=== PATIENT | female | born 1960 | race Caucasian/White ===

== ENCOUNTER 2020-02-25 21:22 | Inpatient (IN) | payer MEDICAID ==
[~2020-02-25] VITALS: Ht 157.4 cm; Wt 67.6 kg
[2020-02-25] MEDS ORDERED: TYLENOL325 M3 PO (21:26)
[2020-02-25] MEDS ORDERED: LIPITOR20 MG PO (21:27)
[2020-02-25] MEDS ORDERED: BISACODYL10 MG R (21:28)
[2020-02-25] MEDS ORDERED: BUPROPION ER100 M1 PO (21:29)
[2020-02-25] MEDS ORDERED: 'KLONOPIN0.5 MG PO (21:30)
[2020-02-25] MEDS ORDERED: KLONOPIN0.5 MG PO (21:31)
[2020-02-25] MEDS ORDERED: LAMICTAL200 MG PO (21:32)
[2020-02-25] MEDS ORDERED: FLEET ENEMA EX230 M1 R (21:32)
[2020-02-25] MEDS ORDERED: MIDODRINE HCL5 M1 PO (21:33)
[2020-02-25] MEDS ORDERED: MOM30 M1 PO (21:33)
[2020-02-25] MEDS ORDERED: NAMENDA-14 PO (21:34)
[2020-02-25] MEDS ORDERED: OXYBUTYNIN5 MG PO (21:36)
[2020-02-25] MEDS ORDERED: SEROQUEL50 MG PO (21:37)
[2020-02-25] MEDS ORDERED: VITAMIN D250 MCG PO (21:39)
[2020-02-25 23:40] VITALS: BP 119/63
--- NOTE | 2020-02-25 23:40 | NUR ---
JAVIER SARKAR a 59 year old F admitted via stretcher from the ADMITTING as a emergency 72 hr. hold admission. Arrived on unit at 2340PM. ALLERGIES: NONE. Vital signs are: [id number]/63. CLIENT IS PINK SLIPPED. WILL CALL GUARDIAN TO HAVE HER FAX PAPERWORK THEN SIGN the following forms with stated understanding: Authorization For The Release of Medical Information, Clothing List, Consent to Voluntary Admission and Hospitalization, Consent and Release Forms/Receipt of Rights, Acknowledgement of Advance Directive Information, Behavioral Health Consent Form, and Informed Consent of Medications. Admitted under the services of Dr. [facility]. A search was conducted and hazardous articles were removed. Client was oriented to the unit. LAURIE FLOREZ
--- NOTE | 2020-02-26 00:30 | NUR ---
DR VICENTE NOTIFIED OF ADMISSION.
--- NOTE | 2020-02-26 01:06 | NUR ---
CLIENT ARRIVED VIA AMBULANCE. MOVED TO HER BED. ALL COSTUME JEWELERY REMOVED. HAIR MATTED WITH DRY FLAKEY SKIN NOTED. GREEN AROUND ENTIRE NECK AND ALL FINGERS THAT HAD JEWELERY ON THEM. CLIENT TAKEN AND GIVEN A FULL SHOWER AND HAIR WASHING. LOWER DENTURES APPEAR TO BE TO LARGE THEY MOVE AROUND MOUTH WHEN SHE TALKS. UPPERS FIT. REFUSED TO HAVE DENTURES SOAK FOR NIGHT. CLIENT DENIES BEING AGGRESSIVE OR PUSHING ANYONE. STATES SHE IS A GOOD PERSON, AND LOVES PEOPLE. WILL CONTINUE TO MONITOR FOR CHANGES IN MOOD/BEHAVIOR AND Q 15 MINUTES AND PRN FOR SAFETY
[2020-02-26 01:12] VITALS: BP 119/63
--- NOTE | 2020-02-26 03:39 | NUR ---
24 HR chart check completed.
--- NOTE | 2020-02-26 06:20 | NUR ---
SLEPT POORLY. PREOCCUPIED WITH GETTING JEWELRY BACK. INTERMITTENT TEARS. WILL CONTINUE TO MONITOR
[2020-02-26 06:26] LABS: BASO % 0.2 % (0.0-1.0); EOS # 0.1 10*3/uL (0.0-0.4); EOS % 1.6 % (1.0-4.0); HEMATOCRIT 41.7 % (37.0-47.0); LYMPH # 2.1 10*3/uL (1.3-4.4); MEAN CELL VOLUME 89.9 fl (81.0-99.0); MEAN CORPUSCULAR HGB 28.9 pg (27.0-31.0); MEAN CORPUSCULAR HGB CONC 32.1 g/dl (33.0-37.0); MONO # 0.6 10*3/uL (0.1-1.0); MONO % 8.6 % (3.0-9.0); NEUT # 3.7 10*3/uL (2.3-7.9); NEUT % 57.4 % (47.0-73.0); PLATELET COUNT AUTOMATED 276 10*3/uL (130-400); RED BLOOD COUNT 4.64 10*6/uL (4.10-5.10); RED CELL DISTRI WIDTH 13.6 % (0-14.5); WHITE BLOOD COUNT 6.4 10*3/uL (4.8-10.8)
[2020-02-26 06:48] LABS: ALBUMIN 3.5 gm/dl (3.1-4.5); ALKALINE PHOSPHATASE 127 U/L (45-117); BUN 13 mg/dl (7-24); CHLORIDE 108 mmol/L (98-107); POTASSIUM 3.6 mmol/L (3.5-5.1); SGOT/AST 14 IU/L (3-35); SGPT/ALT 24 U/L (12-78); SODIUM 140 mmol/L (136-145); TOTAL PROTEIN 7.4 gm/dL (6.4-8.2)
[2020-02-26 07:56] LABS: VITAMIN D, 25-HYDROXY 62.7 ng/mL (30-100)
--- NOTE | 2020-02-26 09:00 | NUR ---
Treatment Plan meeting was held this a.m. with Dr. Shukla, SCOTT Claudio, RN, AT, VICE PRESIDENT INDUSTRIAL RELATIONS-S and Medical Administrative in attendance. Plan for discharge Next Week. Pt. came to [facility] from [facility]. Will reach out to facility today to discuss discharge Planning.
--- NOTE | 2020-02-26 11:42 | NUR ---
DR. BATES ON UNIT TO ASSESS PATIENT.
--- NOTE | 2020-02-26 12:21 | NUR ---
Met with pt to complete psychosocial assessment. It was difficult to obtain much information from the pt as pt was fixated on getting a headband for her hair. Pt was also actively hallucinating. Pt stated that her boyfriend Darryl was in the room and pointed toward a corner where Darryl was standing. After meeting with pt, this ad writer left a voicemail message for pt's guardian Carole Eagle requesting a return call to obtain additional pt information.
--- NOTE | 2020-02-26 12:41 | NUR ---
Spoke with Thao at [facility]. Pt. is Long-Term Care Resident and will return to facility at discharge. Provided with updates and Discharge Plan for next week. Clinical Updates faxed to facility [phone].
--- NOTE | 2020-02-26 13:25 | NUR ---
Occupational Therapy referral received and screen completed. Patient was at [facility] when she became physically aggressive toward staff and was taken to [facility]. From [facility] she was transferred to [facility] Unit with Schizoaffective disorder. She was observerved ambulating on the unit with no device and at an independent level. Nursing reports that patient is independent in all ADLs with min assist for shower. At this time staff has no concerns and patient does not appear to need an OT evaluation. Discharge OT referral. Thank you. Alba Acuna OTR/L
--- NOTE | 2020-02-26 13:48 | NUR ---
PHYSICAL THERAPY Physical therapy referral received and screen completed. Patient ambulating throughout BHU without assistive device. Patient presents with no skilled PT needs at this time. Discharge PT orders. Thank you. Janna Peña,PT,DPT
--- NOTE | 2020-02-26 15:37 | NUR ---
PM GROUP PT DID NOT ATTEND AFTERNOON GROUP THERAPY. PT WAS AT THE END OF THE BARAJAS LOOKING OUT THE WINDOW. PT CHOSE TO STAY IN HER ROOM FOR THE REMAINDER OF GROUP TIME
--- NOTE | 2020-02-26 18:38 | NUR ---
Shift chart check completed.
[2020-02-26 20:00] VITALS: BP 130/73
--- NOTE | 2020-02-26 21:51 | NUR ---
24 HR chart check completed.
--- NOTE | 2020-02-26 22:04 | NUR ---
P-PREOCCUPIED WITH HER MEDICATIONS AND THE TIME FRAME. HOARDING ITEMS IN HER HANDS. I-REDIRECTED, AND REORIENTED. PROVIDED ACTIVE LISTENING. R-ACCEPTED REDIRECTION AND REORIENTATION. REFUSED TO GIVE UP PAPERS IN HER HANDS. MEDICATION COMPLIANT. P-WILL CONTINUE TO REDIRECT AND REORIENT. WILL MONITOR FOR HALLUCINATIONS, MOODS AND BEHAVIORS.
--- NOTE | 2020-02-27 05:08 | NUR ---
PT SLEPT 4 HOURS WITH INTERMITTENT AWAKENINGS SITTING ON SIDE OF BED.
[2020-02-27 07:07] LABS: CHOLESTEROL 176 mg/dL (<200); HDL CHOLESTEROL 94 mg/dl (40-60); LDL CHOLESTEROL 69 mg/dL (9-159); TRIGLYCERIDES 66 mg/dl (<150); VLDL CHOLESTEROL 13 mg/dL (6-40)
[2020-02-27 07:56] VITALS: BP 125/88
--- NOTE | 2020-02-27 08:30 | NUR ---
Treatment Plan meeting was held this a.m. with Dr. Shukla via telephone, ELECTRONIC FIELD SERVICE ENGINEER Shanon, RN, AT, GANTRY RIGGER-S and Raise Drill Operator in attendance. Plan for discharge Next Week. 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
--- NOTE | 2020-02-27 08:33 | NUR ---
DR PARRA ON UNIT TO ASSESS PATIENT, UPDATE PROVIDED.
--- NOTE | 2020-02-27 11:28 | NUR ---
DR. SEE NOTIFIED OF CONSULT FOR NAIL CARE
--- NOTE | 2020-02-27 11:48 | NUR ---
AM GROUP PT ATTENDED MORNING GROUP THERAPY AND PARTICIPATED BY BEADING 2 BRACELETS AND PAINTING WITH WATERCOLORS. IT WAS OKAY WITH NURSE THAT PT KEEP THE BRACELETS TO WEAR. PT WAS QUIET AND FOCUSED BUT NEEDED CONSTANT REASSURANCE. PT WAS HOLDING A BUNCH OF TRASH THAT SHE HAD PICKED UP FROM THE FLOOR AND WAS RELUCTANT TO PUT IT DOWN EVEN TO BEAD. PT EXPRESSED NO HALLUCINATIONS WHILE IN GROUP.
[2020-02-27 14:14] LABS: BILIRUBIN Negative; CLARITY Clear (Clear); COLOR Yellow (Yellow); GLUCOSE Negative; KETONE Trace
[2020-02-27 14:15] LABS: BLOOD Negative (Negative); LEUKO ESTERASE Trace (Negative); NITRITE Negative (Negative); PH 6.5 (4.5-8.0); SPECIFIC GRAVITY < 1.005 (1.001-1.030); UROBILINOGEN 0.2 E.U./dl (0.0-1.0)
[2020-02-27 14:20] LABS: EPITHELIAL CELLS 0-2
--- NOTE | 2020-02-27 15:16 | NUR ---
DR SEE, PODIATRY, ON UNIT TO CLIP PATIENTS TOENAILS.
--- NOTE | 2020-02-27 15:20 | NUR ---
Pt was very proud of the bracelets that she made in AM group. Pt was sitting in a quiet room with music playing after lunch. Pt was pleasant and did not voice any hallucinations during interaction with this adjusto writer operator.
--- NOTE | 2020-02-27 15:42 | NUR ---
PM GROUP PT ATTENDED AFTERNOON GROUP THERAPY FOR A SHORT TIME AND WORKED ON A CRAFT. PT LEFT THE ROOM AND DID NOT RETURN.
--- NOTE | 2020-02-27 15:42 | NUR ---
Shift chart check completed.
[2020-02-27 19:42] VITALS: BP 119/84
--- NOTE | 2020-02-27 21:23 | NUR ---
24 HR chart check completed.
--- NOTE | 2020-02-27 23:08 | NUR ---
P-MANIC I-ASSESS PTS BEHAVIORS, ADMINISTER MEDS, MONITOR SLEEP R-ELATED MOOD. VERY JOVIAL. INAPPROPRIATE LAUGHTER. LISTENING TO MUSIC & DANCING FOR APPROX 1 HOUR. NOTED TO HAVE EYE DARTING & TURN HEAD TO THE SIDE & WHISPER. CONTINUES TO LENORE ITEMS. COMPLIANT WITH MEDICATIONS. DISHELVED APPEARANCE. P-CONTINUE TO MONITOR
--- NOTE | 2020-02-28 05:38 | NUR ---
PT HAS REMAINED AWAKE THE ENTIRE SHIFT STAYING QUIETLY IN HER ROOM. RESTLESS, UP & DOWN IN BED & BACK & FORTH TO THE BATHROOM
[2020-02-28 07:44] VITALS: BP 137/81
--- NOTE | 2020-02-28 08:30 | NUR ---
Treatment Plan meeting was held this a.m. with SCOTT Claudio, RN, AT, ANTONIO-S and High Lead Yarder in attendance. Plan for discharge Next Week. 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
--- NOTE | 2020-02-28 08:56 | NUR ---
MELISSA PARRA ON UNIT TO ASSESS PATIENT, UPDATE PROVIDED.
--- NOTE | 2020-02-28 11:41 | NUR ---
AM GROUP PT DID NOT ATTEND MORNING GROUP THERAPY. PT WAS IN HER ROOM RESTING.
--- NOTE | 2020-02-28 13:49 | NUR ---
Clinical Updates faxed to [facility].
--- NOTE | 2020-02-28 14:47 | NUR ---
This afternoon this FEATHER MAKER-S observed pt alone in the neves facing toward the wall. Pt was motioning with her hands as if she wanted someone to come toward her. Pt was also speaking toward the wall to the unseen. Pt was unaware that this signwriter was present.
--- NOTE | 2020-02-28 15:39 | NUR ---
PM GROUP PT ATTENDED THE LATTER HALF OF AFTERNOON GROUP THERAPY AND PARTICIPATED BY COLORING. PT WAS FOCUSED AND QUIET. PT EXHIBITED NO ADVERSE BEHAVIORS WHILE IN GROUP.
--- NOTE | 2020-02-28 18:10 | NUR ---
P- CONFUSED, HOARDING ITEMS, AUDITORY/VISUAL HALLUCINATIONS I- ORIENTATION, MOOD AND BEHAVIORS ASSESSED. ASSESSED PT FOR SI/HI, INTENT OR PLAN. ASSESSED PT FOR S/S HALLUCINATIONS, PARANOIA AND/OR DELUSIONS. MEDICATIONS ADMINISTERED PER PHYSICIAN'S ORDERS. ASSISTANCE WITH ADL CARE PROVIDED. ENCOURAGED PT TO ATTEND AND PARTICIPATE IN HORVATH MILIEU GROUPS AND ACTIVITES. R- PT IS ALERT AND ORIENTED TO SELF ONLY, OTHERWISE CONFUSED. ST/LT MEMORY GAPS NOTED. RESPS EASY AND EVEN ON ROOM AIR. MOOD STABLE, AFFECT INAPPROPRIATE AT TIMES. SPEECH IS RAPID, SLURRED, DIFFICULT TO UNDERSTAND AT TIMES, HOWEVER, PT IS ABLE TO MAKE NEEDS KNOWN. PT DENIES SI/HI, INTENT OR PLAN. PT DENIES HALLUCINATIONS, HOWEVER, PT WAS OBSERVED BY STAFF WITH RESPONSE TO INTERNAL AUDITORY/VISUAL STIMULI, GESTURING AND TALKING TO UNSEEN OTHERS. PT APPEARED SLIGHTLY PARANOID/SUSPICIOUS THIS AM, PEEKING OUT OF HER ROOM WHILE HIDING BEHIND THE DOORWAY. PT IS MEDICATION COMPLIANT WITHOUT DIFFICULTY. NO AGGRESSIVE BEHAVIORS, NO EXIT SEEKING. NO DISTRESS NOTED. P- PLAN TO CONTINUE CURRENT TREATMENT, CONTINUE TO MONITOR MOOD AND BEHAVIORS, PROVIDE APPROPRIATE REORIENTATION AND REDIRECTION NEEDED. CONTINUE TO ENCOURAGE MEDICATION COMPLIANCE WELL GROUP ATTENDANCE AND PARTICIPATION.
[2020-02-28 19:40] VITALS: BP 127/78
--- NOTE | 2020-02-28 21:00 | NUR ---
UP IN DININGROOM. PRESSURED SPEECH AND ANXIOUS. KEEPS REPEATING I WANT MY MEDS, ARE THOSE MINE, I WANT MY MEDICINE. CLIENT FOLLOWED ME UP BARAJAS AND WAITED OUTSIDE PEER ROOM. TOOK MEDICATIONS AND WENT TO BED. WILL CONTINUE TO MONITOR Q 15 MINS AND PRN FOR SAFETY
--- NOTE | 2020-02-29 00:22 | NUR ---
24 HR chart check completed.
--- NOTE | 2020-02-29 05:43 | NUR ---
RESTLESS. SLEPT APPROX 5.5 HOURS.
--- NOTE | 2020-02-29 07:39 | NUR ---
Patient resting quietly with no c/o discomfort. Respirations easy and regular. Vital signs stable. No overt distress. ARA LIMA
[2020-02-29 07:51] VITALS: BP 144/85
--- NOTE | 2020-02-29 09:00 | NUR ---
Treatment Plan meeting was held this a.m. with Dr. Shukla, RN, AT, SUPERVISOR/PORT DIRECTOR-S and Tobacco Sweeper in attendance. Plan for discharge Next Week. Pt. will return to [facility].
--- NOTE | 2020-02-29 11:49 | NUR ---
AM GROUP PT ATTENDED MORNING GROUP THERAPY AND PARTICIPATED BY WORKING ON A CRAFT. PT EXHIBITED OBSESSIVE BEHAVIORS IN WANTING TO HAVE HER UNFINISHED BOX TO TAKE WITH HER. PT WAS ASSURED THAT THE BOX WAS HERS TO TAKE WITH HER WHEN SHE WENT HOME BUT COULD NOT BE TAKEN TO HER ROOM OR OUT OF THE DAYROOM. PT CONTINUED TO OBSESS OVER HAVING THE BOX IN HER POSSESSION. PT WAS DISTRACTED WHEN TOLD SHE GET TO KEEP THE PROJECT IF SHE DIDN'T LEAVE IT WHERE IT WAS. PT WAS OBSERVED TO BE CLUTCHING A BUNCH OF TRASH IN HER HAND AND I NOTICED A FEW COTTON BALLS AND BANDAGES WITH BLOOD ON THEM. PT WAS ASKED WHERE SHE GOT THEM AND IF SHE PICKED THEM OFF THE FLOOR OR OUT OF THE TRASH? PT KEPT SAYING OVER AND OVER, "THEY'RE MINE, THEY'RE MINE." AND CLUTCHED HER FIST CLOSED. MHW WAS PRESENT AND WAS MADE AWARE OF THE SITUATION.
--- NOTE | 2020-02-29 11:56 | NUR ---
SPOKE WITH DR JARRELL RE: FINDING PT WITH MULTIPLE EXELON PATCHES IN HER HAND AND BELONGINGS. ADVISED THAT WHEN 2ND NURSE WENT TO CHANGE THE PATCH THIS AM, SHE WAS UNABLE TO LOCATE YESTERDAY'S PATCH. NEW ORDERS RECEIVED FOR ORAL MEDICATION.
--- NOTE | 2020-02-29 14:26 | NUR ---
P- HOARDING BEHAVIORS. IRRITABLE WITH REDIRECTION. I- ORIENTATION, MOOD AND BEHAVIORS ASSESSED. ASSESSED PT FOR SI/HI, INTENT OR PLAN. ASSESSED PT FOR S/S HALLUCINATIONS, PARANOIA AND/OR DELUSIONS. MEDICATIONS ADMINISTERED PER PHYSICIAN'S ORDERS. ENCOURAGED PT TO ATTEND AND PARTICIAPATE IN HORVATH MILIEU GROUPS AND ACTIVITIES. R- PT IS ALERT AND ORIENTED TO PERSON AND PLACE, OTHERWISE CONFUSED. PT STATES THE YEAR IS "[id number]". PT WAS ABLE TO CORRECTLY IDENTIFY THE PRESIDENT. MEMORY GAPS NOTED. RESPS EASY AND EVEN ON ROOM AIR. MOOD EASILY IRRITABLE UPON ATTEMPTS TO REDIRECT, ESPECIALLY IN REGARD TO PT'S HOARDING BEHAVIORS. PT WAS NOTED WITH MULTIPLE TRASH-LIKE ITEMS IN HER HANDS. PT REFUSED TO GIVE THESE ITEMS TO STAFF YELLING "MINE! MINE! MINE!". STAFF WAS EVENTUALLY ABLE TO SECURE THESE ITEMS FROM THE PT. PT WAS FOUND WITH COTTON BALLS COVERED IN NAIL PERSIAN, TAPE, MULTIPLE STRAWS, CHENG AND TOOTHBRUSES WELL 4 EXELON PATCHES STUCK TO IN THE INSIDE OF HER PALM. EXPLAINED TO PT WHY SHE COULD NOT BE HOARDING THESE ITEMS, ESPECIALLY THE EXELON PATCHES. PT DOES NOT ACCEPT REDIRECTION EASILY. PT INSISTS THE PATCHES ARE "GEMSTONES" AND THAT WE "STOLE THEM" FROM HER. EDUCATION AND REDIRECTION PROVIDED WITH LITTLE EFFECT. PT EVENTUALLY CALMED WHILE LISTENING TO MUSIC AND THEN BEGAN DANCING AND SINGING. PT DENIES SI/HI, INTENT OR PLAN. PT DENIES HALLUCINATIONS, NO RESPONSE TO INTERNAL STIMULI NOTED. NO PHYSICALLY AGGRESSIVE BEHAVIORS. NO DISTRESS NOTED. P- PLAN TO CONTINUE CURRENT TREATMENT, CONTINUE TO MONITOR MOOD AND BEHAVIORS. PROVIDE APPROPRIATE REORIENTATION, REDIRECTION AND 1:1 NEEDED. CONTINUE TO ENCOURAGE MEDICATION COMPLIANCE WELL GROUP ATTENDANCE AND PARTICIPATION.
--- NOTE | 2020-02-29 15:40 | NUR ---
PM GROUP PT ATTENDED AFTERNOON GROUP THERAPY AND PARTICIPATED BY WORKING ON HER PROJECT AND LISTENING TO MUSIC. PT WAS FOCUSED AND ON TASK. PT WAS A BIT AGITATED THAT THE BRACELETS SHE HAD MADE WERE TAKEN OFF OF HER WHEN SHE WAS ALLOWED TO WEAR THEM FOR THE PAST 2 DAYS. PT WAS ASSURED THAT THEY WERE SAFE AND THAT SHE COULD HAVE THEM WHEN SHE LEAVES
[2020-02-29 19:54] VITALS: BP 113/86
--- NOTE | 2020-02-29 20:47 | NUR ---
INTRUSIVE AND DISRUPTIVE WITH STAFF WHEN WITH PEERS. WORDS SLURRED WITH FEW COHERANT. TALKING ABOUT LOVE AND PRAYING TO [place]. PREOCCUPIED WITH MEDICATION PASS. DIFFICULT TO REDIRECT. WILL CONTINUE TO MONITOR FOR CHANGES IN MOOD/BEHAVIOR AND Q 15 MINS AND PRN FOR SAFETY Q 15MINS AND PRN
--- NOTE | 2020-03-01 05:53 | NUR ---
HAD BROKEN SLEEP PAST 2230PM. SLEPT APPROX 5.5 HOURS BROKEN
[2020-03-01 07:44] VITALS: BP 110/67
--- NOTE | 2020-03-01 09:30 | NUR ---
ON UNIT TO SEE PT AT THIS TIME.
--- NOTE | 2020-03-01 11:20 | NUR ---
Treatment Plan meeting was held this a.m. with Dr. Shukla via telephone, SWINE GENETICS RESEARCHER Shanon, RN, AT, LIVING ADVISOR-S and Driller And Reamer in attendance. Plan for discharge Next Week. 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
--- NOTE | 2020-03-01 15:19 | NUR ---
P- HOARDING BEHAVIORS, WITHDRAWN. I- ORIENTATION, MOOD AND BEHAVIORS ASSESSED. ASSESSED PT FOR SI/HI, INTENT OR PLAN. ASSESSED PT FOR S/S HALLUCINATIONS, PARANOIA AND/OR DELUSIONS. MEDICATIONS ADMINISTERED PER PHYSICIAN'S ORDERS. ASSISTANCE WITH ADL CARE PROVIDED NEEDED. ENCOURAGED PT TO ATTEND AND PARTICIPATE IN HORVATH MILIEU GROUPS AND ACTIVITIES. R- PT IS ALERT AND ORIENTED TO PERSON, PLACE AND YEAR. CONFUSION AND MEMORY GAPS NOTED. RESPS EASY AND EVEN ON ROOM AIR. MOOD ELATED AND AFFECT ANIMATED AT TIMES. SPEECH IS RAPID, SLURRED, ABLE TO MAKE NEEDS KNOWN AND ANSWER QUESTIONS. PT DENIES SI/HI, INTENT OR PLAN. PT DENIES HALLUCINATIONS, NO RESPONSE TO INTERNAL STIMULI NOTED. NO PARANOIA OR DELUSIONS NOTED. PT IS ISOLATIVE/WITHDRAWN. HOARDING BEHAVIORS CONTINUE. PT IS MEDICATION COMPLIANT WITHOUT DIFFICULTY. NO DISTRESS NOTED. P- PLAN TO CONTINUE CURRENT TREATMENT, CONTINUE TO MONITOR MOOD AND BEHAVIORS. PROVIDE APPROPRIATE REORIENTATION AND REDIRECTION NEEDED. CONTINUE TO ENCOURAGE MEDICATION COMPLIANCE WELL GROUP ATTENDANCE AND PARTICIPATION.
[2020-03-01 20:00] VITALS: BP 123/61
--- NOTE | 2020-03-02 02:53 | NUR ---
P- INTRUSIVE/DISRUPTIVE. PT APPROACHED STAFF ON MULTIPLE OCCASIONS AT BEGINNING OF SHIFT DEMANDING HER MEDICATION STATING "YOU ARE LATE, IM SUPPOSED TO GET MY MEDICATIONS AT 8:30!". PT ALSO NOTED TO INTERRUPT STAFF WHILE ATTENDING TO OTHER PATIENTS BY YELLING OUT AND PUTTING HER HAND UP STATING "AM I SAFE!" OR BY ANSWERING QUESTIONS THAT ARE INTENDED FOR OTHER PEERS. I- PROVIDE 1:1 WITH THERAPEUTIC INTERVENTIONS. REDIRECT NEEDED. REITERATE SAFETY. ENCOURAGE MEDICATION COMPLIANCE AND EDUCATE. MONITOR SLEEP. R- "OH OKAY, SORRY". PT ALERT TO SELF, APPROX PLACE AND TIME. PT RECEPTIVE TO INTERVENTIONS WHEN PRESENTED FOR SHORT PERIODS, REDIRECTABLE NEEDED. PT OTHERWISE PLEASANT, CALM, INTERACTIVE. MEDICATION COMPLIANT WITHOUT DIFFICULTY. DENIES SI/HI, HALLUCINATIONS, OR PAIN. PT AMBULATORY WITH A STEADY GAIT, CONTINENT OF BOWEL AND BLADDER, INDEPENDENT IN ADL'S WITH PROMPTING. NO DISTRESS NOTED. P-CONTINUE TO MONITOR MOOD AND BEHAVIORS. MAINTAIN Q 15 MIN CHECKS AND PRN FOR SAFETY.
--- NOTE | 2020-03-02 05:45 | NUR ---
PATIENT OBSERVED ON Q 15 MIN CHECKS TO HAVE SLEPT APPROX 5 HOURS UNINTERRUPTED. NO DISTRESS NOTED.
--- NOTE | 2020-03-02 06:08 | NUR ---
24 HOUR CHART CHECK COMPLETED.
[2020-03-02 07:52] VITALS: BP 118/65
--- NOTE | 2020-03-02 09:10 | NUR ---
DR PARRA ON UNIT TO ASSESS PT, UPDATE PROVIDED.
--- NOTE | 2020-03-02 11:17 | NUR ---
NO ADVERSE MOODS OR BEHAVIORS NOTED AT THIS TIME. PT ALERT TO PERSON, PLACE AND TIME. PT MED COMPLIANT WITHOUT DIFFICULTY, UNABLE TO PROVIDE MED EDUCATION D/T COGNITION. PT CALM, PLEASANT AND COOPERATIVE WITH STAFF. NO HALLUCINATIONS OR DELUSIONS NOTED. PT DENIES ANY SUICIDAL THOUGHTS. PT AMBULATORY THROUGHOUT UNIT, GAIT STEADY. PT CONTINENT OF BOWEL AND BLADDER. PLAN IS TO MONITOR PT BEHAVIORS ON Q15 MIN SAFETY CHECKS, ENCOURAGE MED COMPLIANCE, ENCOURAGE GROUP PARTICIPATION AND SOCIALIZATION.
[2020-03-02 20:00] VITALS: BP 112/85
--- NOTE | 2020-03-03 01:57 | NUR ---
P-INTRUSIVE/DISRUPTIVE, YELLING OUT, PREOCCUPIED WITH HS MEDICATIONS. I-PROVIDE APPROPRIATE REDIRECTION. PROVIDE 1:1 WITH THERAPEUTIC INTERVENTIONS. ENCOURAGE MEDICATION COMPLIANCE AND EDUCATE. MONITOR SLEEP. R- "I WANT MY MEDICATIONS NOW, WHAT IS TAKING SO LONG, I WANT TO GO TO BED" PATIENT APPROACHED STAFF AT CHANGE OF SHIFT TO DEMAND HS MEDICATIONS. PT ALSO NOTED TO YELL OUT DOWN HALLWAY AND INTERRUPT STAFF WHILE ATTENDING TO OTHER PATIENTS IN REGARDS WANTING HER MEDICATIONS. PT MINIMALLY RECEPTIVE TO REDIRECTION AND AT TIMES BECOMES ARGUMENTATIVE TOWARD STAFF. NO AGGRESSIVE BEHAVIORS OBSERVED. MEDICATION COMPLIANT WITH OUT DIFFICULTY. DENIES SI/HI, HALLUCINATIONS, OR PAIN. AMBULATORY WITH A STEADY GAIT, INDEPENDENT WITH ADLS WITH PROMPTING, CONTINENT OF BOWEL AND BLADDER. NO DISTRESS NOTED. P-CONTINUE TO MONITOR MOOD AND BEHAVIORS. MAINTAIN Q 15 MIN CHECKS AND PRN FOR SAFETY.
--- NOTE | 2020-03-03 05:54 | NUR ---
PATIENT AWAKE AT THIS TIME AND BEING DISRUPTIVE OF UNIT. YELLING OUT IN REGARDS TO A "PURSE" AND A "SQUARE" WHILE POINTING HER FINGER AND CHARGING AT STAFF. PT ALSO ATTEMPTED TO PUSH STAFF MEMBERS IN HALLWAY WHILE CONTINUING TO STATE "GO, GO" AND "GO FIND IT NOW". MULTIPLE REDIRECTION ATTEMPTS REQUIRED. WILL CONTINUE TO MONITOR FOR ESCALATING BEHAVIORS.
--- NOTE | 2020-03-03 06:58 | NUR ---
PATIENT OBSERVED ON Q 15 MIN CHECKS TO HAVE SLEPT APPROX 2 HOURS INTERRUPTED. NO DISTRESS NOTED.
[2020-03-03 07:36] VITALS: BP 121/67
--- NOTE | 2020-03-03 09:05 | NUR ---
DR PARRA ON UNIT TO ASSESS PATIENT, UPDATE PROVIDED.
--- NOTE | 2020-03-03 17:23 | NUR ---
PATIENT IS ANXIOUS, CONFUSED, OBSESSIVE, PREOCCUPIED WITH MEDICATIONS. PATIENT IS RESTLESS, DEMANDING. PATIENT HAS MEMORY DEFICITS. PATIENT IS ALERT TO PERSON AND STATES SHE IS AT A "LAB WORK" PLACE. PATIENT IS ANIMATED. STATES SHE IS IN A "GOOD, CASTRO MOOD AND CHEERFUL". DENIES HALLUCINATIONS. DENIES SUICIDAL/HOMICIDAL IDEATION. PATIENT IS DISRUPTIVE. PATIENT IS AMBULATORY WITH STEADY GAIT. INDEPENDENT WITH ADL'S WITH MUCH ENCOURAGEMENT. MEDICATION COMPLIANT WITH EDUCATION. INTAKES ARE GOOD WITH ADEQUATE NUTRITION. Q15 MINUTE SAFETY CHECKS MAINTAINED. WILL CONTINUE TO MONITOR FOR MOOD/BEHAVIORS.
[2020-03-03 20:00] VITALS: BP 148/75
--- NOTE | 2020-03-03 20:56 | NUR ---
ELATED, ANIMATED, SMILING. RAPID SPEECH WITH SLURRED WORDS. STATES I AM IN SUCH A GREAT MOOD. DIFFICULTY SWOLLOWING PILLS. GIVEN APPLESAUCE TO HELP SWOLLOW. CONTINUE TO MONITOR FOR CHANGES IN MOOD/BEHAVIOR AND Q15 MINS AND PRN FOR SAFETY
--- NOTE | 2020-03-04 04:16 | NUR ---
24 HR chart check completed.
--- NOTE | 2020-03-04 06:07 | NUR ---
SLEPT [id number]. BROKEN HOUR BETWEEN [phone]
[2020-03-04 07:37] VITALS: BP 112/64
--- NOTE | 2020-03-04 09:00 | NUR ---
Treatment Plan meeting was held this a.m. with Dr. Shukla, SCOTT Claudio, RN, IRON AND STEEL WORK SUPERVISOR-S and Interpreter For The Deaf in attendance. Plan for discharge Wednesday. Pt. will return to [facility].
--- NOTE | 2020-03-04 11:40 | NUR ---
DR. POWER ON UNIT TO ASSESS PATIENT.
--- NOTE | 2020-03-04 11:53 | NUR ---
Clinical Updates faxed to [facility].
--- NOTE | 2020-03-04 15:36 | NUR ---
Shift chart check completed.
[2020-03-04 19:37] VITALS: BP 114/66
--- NOTE | 2020-03-04 20:52 | NUR ---
P--ANXIETY, CONFUSION, LABILE I--REVIEWED MEDICATIONS. ANSWERED QUESTIONS. OFFERED EMOTIONAL SUPPORT. R--WERE IS MY MEDICINE, RAPID SLURRED SPEECH, LABILE MOOD, WANTING PEERS MEDICATIONS P-MONITOR FOR CHANGES IN MOOD/BEHAVIOR AND Q 15 MINS AND PRN FOR SAFETY
--- NOTE | 2020-03-05 06:00 | NUR ---
UP AND AGGITATED THINKING ROOMMATE STOLE HER CLOTHING. REDIRECTION WAS DIFFICULT BUT COMPLETED. BROKEN SLEEP FROM [phone] AND [phone]
[2020-03-05 08:00] VITALS: BP 122/74
--- NOTE | 2020-03-05 08:30 | NUR ---
Treatment Plan meeting was held this a.m. with Dr. Shukla via telephone, IT ASSOCIATE Shanon, RN, AT, MODELING TEACHER-S and Puff Iron Operator in attendance. Plan for discharge at the end of the week. 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
--- NOTE | 2020-03-05 11:00 | NUR ---
DR POWER ON UNIT TO ASSESS PATIENT, UPDATE PROVIDED.
--- NOTE | 2020-03-05 15:24 | NUR ---
P: PREOCCUPIED WITH OTHERS BELONGING AND OF HER MEDICATIONS. ACCUSTORY OF STAFF TAKING HER BELONGS OF A WATER BOTTLE. PATIENT ATTEMPTED TO TAKE MARKERS FROM GROUP ACTIVITIES. I: ONE ON ONE AND REDIRECTION PROVIDED R: ONE ON ONE EFFECTIVE. PATIENT IS ALERT TO PERSON AND WITH CONFUSION. MOOD IS STABLE. NO AGGRESSION. PATIENT DENIES ANY HALLUCINATIONS/DELUSIONS, HI/SI OR PAIN. MEDICATION COMPLIANT WITH EDUCATION. Q 15 MINUTE SAFETY CHECKS MAINTAINED. ONE PERSON ASSIST WITH ACTIVITIES OF DAILY LIVING, CONTINENT OF BOWEL AND BLADDER, SET UP FOR MEALS, INTAKE ARE GOOD WITH ADEQUATE FLUIDS. PATIENT REQUIRES VERBAL CUEING WITH ADL'S. INTERACTIVE WITH STAFF AND OTHER PATIENTS. PARTICIPATES IN GROUP SESSIONS. P: CONTINUE TO MONITOR FOR HALLUCINATIONS, PRESSURED SPEECH AND AGGRESSION. PROVIDE ONE ON ONE, REDIRECTION/ORIENTATION NEEDED.
--- NOTE | 2020-03-05 15:49 | NUR ---
PM GROUP PT WAS PRESENT FOR AFTERNOON GROUP THERAPY AND PARTICIPATED IN ALL ACITIVITIES OFFERED. PT IS DEMANDING AND GETS TUNNEL VISION WHEN SHE SEES SOMETHING THAT SHE WANTS. PT WANTED MY HAIR CLIPS, MY WATER BOTTLE WHICH SHE STATED I STOLE FROM HER AND THEN THAT I SHOULD GIVE IT TO HER A GIFT. WHEN GROUP WAS OVER PT HAD SEVERAL MARKERS CLUTCHED IN HER FIST TRYING TO HIDE THEM FROM ME. PT WAS ASKED NICELY 3 TIMES TO PUT THE MARKERS ON THE TABLE. PT REFUSED EACH TIME STATING, "WHAT MARKERS? I DON'T HAVE ANY MARKERS." PT NURSE WAS INFORMED AND WHEN NURSE ENTERED THE ROOM PT PLACED THE MARKERS ON THE TABLE.
--- NOTE | 2020-03-05 16:17 | NUR ---
Shift chart check completed.
[2020-03-05 19:42] VITALS: BP 109/69
--- NOTE | 2020-03-06 02:58 | NUR ---
P-LABILE, HOARDING I-REDIRECTION WITH 1:1 THERAPEUTIC INTERVENTIONS AND PRESENT REALITY. EDUCATE AND ENCOURAGE MEDICATION COMPLIANCE R-PATIENT NONCOMPLIANT WITH MEDICATON AT HS. PATIENT PROVIDED NOURISHMENT AND FLUIDS AT HS. PATIENT WITH LIMITED INTERACTION IN DINING AREA WITH PEERS AND NURSING STAFF. PATIENT WITH LABILE MOOD. PATIENT INTRUSIVE WITH AT HS, TEARFUL EPISODES, POCKETING MEDICATIONS, AND DEMANDING. PATIENT HOARDING PAPERS AND OTHER MATERIALS IN SMALL BAG. PATIENT WITH NO NOTED HALLUCINATIONS OR DELUSIONS. PATIENT WITH NO HOMICIDAL OR SUICIDAL IDEATIONS. P-CONTINUE TO ENCOURAGE MEDICATION COMPLIANCE, CONTINUE TO PRESENT REALITY, ENCOURAGE GROUP THERAPY WHILE AWAKE
--- NOTE | 2020-03-06 06:49 | NUR ---
PATIENT SLEPT 6 HOURS OF INTERRUPTED SLEEP THROUGHOUT SHIFT. Q 15 MINUTE CHECKS MAINTAINED. 24 HR chart check completed.
[2020-03-06 07:35] VITALS: BP 139/78
--- NOTE | 2020-03-06 08:30 | NUR ---
Treatment Plan meeting was held this a.m. with SCOTT Claudio RN, AT and Rural Sociologist in attendance. Plan for discharge Wednesday. Pt. to return to [facility] as a Mcc Care Resident.
--- NOTE | 2020-03-06 09:24 | NUR ---
DR PARRA ON UNIT TO ASSESS PATIENT, UPDATE PROVIDED.
--- NOTE | 2020-03-06 11:31 | NUR ---
P: PATIENT IS CONFUSED, PREOCCUPIED, DEMANDING, RESTLESS, INTRUSIVE/DISRUPTIVE, AND PARANOID. I: 1:1 FOR EMOTIONAL SUPPORT, PROVDE SPACE NEEDED. ALLOW PATIENT TO VERBALIZE FEELINGS, NEEDS AND CONCERNS. R: PATIENT IS ALERT TO SELF ONLY WITH CONFUSION. PATIENT IS PREOCCUPIED AND DEMANDING WITH HER MEDICATIONS. PATIENT IS RESTLESS. PATIENT IS DISRUPTIVE AND INTRUSIVE ESPECIALLY DURING MED PASS. PATIENT DENIES SADNESS/DEPRESSION. DENIES SI/HI. PATIENT IS MEDICATION COMPLIANT WITH EDUCATION. PATIENT NEEDS ENCOURAGEMENT WITH ACTIVITIES OF DAILY LIVING. PATIENT IS AMBULATORY WITH STEADY GAIT. PATIENT IS CONTINENT. SET UP FOR MEALS. INTAKES ARE GOOD WITH ADEQUATE FLUIDS. P: WILL CONTINUE TO MONITOR MOODS/BEHAVIORS. Q15 MINUTE SAFETY CHECKS MAINTAINED. WILL CONTINUE TO ENOCURAGE MEDICATION COMPLIANCE, ENCOURAGE INTERACTION WITH PEERS AND STAFF AND PARTIICIPATE IN GROUP ACTIVITIES.
--- NOTE | 2020-03-06 11:47 | NUR ---
AM GROUP PT WAS PRESENT FOR MORNING GROUP THERAPY SEATED AT A TABLE SLEEPING UPRIGHT IN HER CHAIR. PT WOKE AT THE START OF GROUP BUT CHOSE NOT TO PARTICIPATE IN THE EXERCISES. PT CONTINUED NAPPING UNTIL THE END OF GROUP AND BEGAN REQUESTING MUSIC. PT EXHIBITED NO ADVERSE BEHAVIORS WHILE IN GROUP.
--- NOTE | 2020-03-06 12:47 | NUR ---
Clinical Updates faxed to [facility].
--- NOTE | 2020-03-06 15:42 | NUR ---
PM GROUP PT ATTENDED AFTERNOON GROUP THERAPY AND PARTICIPATED BY DOING A CRAFT. PT WAS LESS OBSESSED WITH KEEPING THE CRAFT IN FRONT OF HER. PT WAS QUIET AND SOMEWHAT FOCUSED. PT EXHIBITED NO ADVERSE BEHAVIORS WHILE IN GROUP.
[2020-03-06 19:04] VITALS: BP 132/71
--- NOTE | 2020-03-06 22:13 | NUR ---
Patient alert to self only with confusion noted. Mood calm,cooperative but isolative to self in diningroom with other patients. Patient denies any SI/HI or hallucinations. No s/s of any responding to internal stimuli noted at this time. Patient compliant with HS medications without any difficulty. Provided 1:1 for emotional support. Redirect/reorient when needed. Plan to continue to encourage medication compliance. Also continue to offer emotional support and continue to redirect/reorient when needed/appropriate. Will continue to monitor moods/behaviors. Q 15 minute safety checks continued and maintained. See [facility] flowsheet for further documentation.
--- NOTE | 2020-03-07 05:48 | NUR ---
Patient slept approx. 6 hours throughout shift. Q 15 minute safety checks continued and maintained.
[2020-03-07 07:47] VITALS: BP 136/69
--- NOTE | 2020-03-07 08:52 | NUR ---
Patient resting quietly with no c/o discomfort. Respirations easy and regular. Vital signs stable. No overt distress. [place] [place] PT SHOWERED. SITTING IN ROOM AT THIS TIME, AWAKE, ALERT AND VERBAL. ON UNIT TO SEE PT AT THIS TIME, UPDATE GIVEN.
--- NOTE | 2020-03-07 09:30 | NUR ---
Treatment Plan meeting was held this a.m. with Dr. Shukla, RN, AT, [facility] and [facility] in attendance. Plan for discharge Wednesday. Pt. will return to [facility].
--- NOTE | 2020-03-07 09:33 | NUR ---
ON UNIT TO SEE PT AT THIS TIME.
--- NOTE | 2020-03-07 11:58 | NUR ---
AM GROUP PT DID NOT ATTEND MORNING GROUP THERAPY. PT WAS IN BED RESTING.
--- NOTE | 2020-03-07 15:36 | NUR ---
PM GROUP PT ATTENDED AFTERNOON GROUP THERAPY AND PARTICIPATED IN ALL ACTIVITIES OFFERED. PT WAS FOCUSED, QUIET AND ON TASK. PT EXHIBITED NO ADVERSE BEHAVIORS WHILE IN GROUP
--- NOTE | 2020-03-07 15:43 | NUR ---
NO ADVERSE MOODS OR BEHAVIORS THIS SHIFT. PT IS ALERT WITH PLEASANT CONFUSION. RESPS EASY AND EVEN ON ROOM AIR. MOOD IS STABLE, EUPHORIC WITH ANIMATED AFFECT AT TIMES. SPEECH IS RAPID, MUMBLED PER PT BASELINE. PT IS ABLE TO MAKE NEEDS KNOWN WITHOUT DIFFICULTY. PT DENIES SI/HI, INTENT OR PLAN. PT DENIES HALLUCINATIONS, NO RESPONSE TO INTERNAL STIMULI NOTED. NO PARANOIA OR DELUSIONS NOTED. PT IS MEDICATION COMPLIANT WITHOUT DIFFICULTY. NO AGGRESSIVE BEHAVIORS THIS SHIFT. NO DISTRESS NOTED. PLAN TO CONTINUE CURRENT TREATMENT.
[2020-03-07 19:03] VITALS: BP 129/74
--- NOTE | 2020-03-07 21:25 | NUR ---
Patient alert to self only with confusion noted. Mood calm,cooperative but isolative to self in diningroom with other patients. Patient denies any SI/HI or hallucinations. No s/s of any responding to internal stimuli noted at this time. Patient compliant with HS medications without any difficulty. Provided 1:1 for emotional support. Redirect/reorient when needed. Plan to continue to encourage medication compliance. Also continue to offer emotional support and continue to redirect/reorient when needed/appropriate. Will continue to monitor moods/behaviors. Q 15 minute safety checks continued and maintained. See [facility] flowsheet for further documentation.
--- NOTE | 2020-03-08 00:34 | NUR ---
24 HR chart check completed.
--- NOTE | 2020-03-08 06:09 | NUR ---
PT SLEPT 8 INTERRUPTED HOURS
--- NOTE | 2020-03-08 06:10 | NUR ---
PT SLEPT APPROXIMATELY 6 HOURS
[2020-03-08 07:29] VITALS: BP 128/69
--- NOTE | 2020-03-08 08:09 | NUR ---
SPOKE WITH DR MARTINES RE: PT DC FOR TODAY AND MEDICAL MEDS NEEDING COMPLETED.
--- NOTE | 2020-03-08 09:49 | NUR ---
AND TEAM ON UNIT TO SEE PT AT THIS TIME. AWARE OF DISCHARGE FOR TODAY AT 11AM.
[2020-03-08] MEDS ORDERED: FLUVOXAMINE50 MG PO ×2 (09:51→10:16)
[2020-03-08] MEDS ORDERED: Vitamin D (50,000 UN PO (09:51)
[2020-03-08] MEDS ORDERED: QUETIAPINE FUM300 M1 PO (09:51)
[2020-03-08] MEDS ORDERED: RIVASTIGMINE TAR3 M1 PO (09:51)
[2020-03-08] MEDS ORDERED: DIVALPROEX SOD125 M1 PO ×4 (09:51→10:00)
[2020-03-08] MEDS ORDERED: MEMANTINE HCL10 MG PO (09:51)
--- NOTE | 2020-03-08 10:16 | NUR ---
NURSE TO NURSE REPORT GIVEN TO JESE AT [facility]. PT ALERT TO PERSON AND PLACE. PT MED COMPLIANT WITHOUT DIFFICULTY, PT TAKES MEDS CRUSHED IN PUDDING OR APPLESAUCE. PT AMBULATORY THROUGHOUT UNIT, GAIT STEADY. PT CONTINENT OF BOWEL AND BLADDER. NO HALLUCINATIONS OR DELUSIONS NOTED. PT DENIES ANY SUICIDAL THOUGHTS. PT CONTINUES TO EXHIBIT HOARDING BEAHVIORS AT TIMES. NO SKIN ISSUES NOTED AT THIS TIME, PT REFUSES SKIN ASSESSMENT. PLAN IS TO MONITOR PT BEHAVIORS ON Q15 MIN SAFETY CEHCKS AND PREPARE PT FOR DISCHARGE.
--- NOTE | 2020-03-08 10:58 | NUR ---
PT DISCHARGED AT THIS TIME TO [facility] VIA [facility] WITH 2 optical instrument assembly supervisor. ALL PERSONAL BELONGINGS WERE SENT WITH THE PT. PT LEFT THE UNIT IN STABLE CONDITION AT 1058. POWDER PRESS OPERATOR PRESENT. DISCHARGE PACKET PROVIDED FOR FACILITY.
--- NOTE | 2020-03-08 14:23 | NUR ---
Treatment Plan meeting was held this a.m. with SCOTT Claudio, RN, AT, [facility] and [employer] in attendance. Plan for discharge today. Pt. will return to [facility]. Transportation arranged with [facility] to Transport with supervisor buffing and pasting time 11:00 a.m.
== END 2020-03-08 10:59 | DRG 750 ==
LOC: 3N 21:22
PROVIDERS: Nurse Practitioner Women's Health; ADMIT Psychiatry & Neurology Psychiatry; ATTEND Psychiatry & Neurology Psychiatry
PROC: 0HBRXZZ Excision of Toe Nail, External Approach (ICD-10-PCS; principal; 2020-02-27)
PROC: 0HBRXZZ Excision of Toe Nail, External Approach (ICD-10-PCS; 2020-02-27)
PROC: 0HBRXZZ Excision of Toe Nail, External Approach (ICD-10-PCS; 2020-02-27)
PROC: 0HBRXZZ Excision of Toe Nail, External Approach (ICD-10-PCS; 2020-02-27)
PROC: 0HBRXZZ Excision of Toe Nail, External Approach (ICD-10-PCS; 2020-02-27)
PROC: 0HBRXZZ Excision of Toe Nail, External Approach (ICD-10-PCS; 2020-02-27)
PROC: 0HBRXZZ Excision of Toe Nail, External Approach (ICD-10-PCS; 2020-02-27)
PROC: 0HBRXZZ Excision of Toe Nail, External Approach (ICD-10-PCS; 2020-02-27)
PROC: 0HBRXZZ Excision of Toe Nail, External Approach (ICD-10-PCS; 2020-02-27)
PROC: 0HBRXZZ Excision of Toe Nail, External Approach (ICD-10-PCS; 2020-02-27)
DX: F25.0 Schizoaffective disorder, bipolar type (principal); F03.90 Unspecified dementia, unspecified severity, without behavioral disturbance, psychotic disturbance, mood disturbance, and anxiety; E87.8 Other disorders of electrolyte and fluid balance, not elsewhere classified; R74.8 Abnormal levels of other serum enzymes; B35.1 Tinea unguium; Z20.828 Contact with and (suspected) exposure to other viral communicable diseases; E78.5 Hyperlipidemia, unspecified; Z79.899 Other long term (current) drug therapy